=== PATIENT | male | born 1990 | race Caucasian/White ===

== ENCOUNTER 2018-06-29 22:57 | Emergency (ER) | payer OTHER ==
[2018-06-29 23:09] VITALS: Ht 193 cm
[2018-06-30 01:55] VITALS: BP 125/74
== END 2018-06-30 01:55 | disposition home or self-care (01) ==
LOC: ED 22:57
DX: S63.652A Sprain of metacarpophalangeal joint of right middle finger, initial encounter (principal); W22.01XA Walked into wall, initial encounter; Y93.89 Activity, other specified; Y92.89 Other specified places as the place of occurrence of the external cause; Y99.8 Other external cause status